=== PATIENT | female | born 1990 | race Caucasian/White ===

== ENCOUNTER 2017-09-30 17:10 | Emergency (ER) | payer BC, MEDICAID ==
[~2017-09-30] VITALS: Ht 165.1 cm; Wt 65.8 kg
[2017-09-30 17:10] VITALS: BP 122/78
[2017-09-30] MEDS ORDERED: IBUPROFEN 600 MG TABLET PO ONE ×2 (18:00)
--- NOTE | 2017-09-30 18:52 | NUR ---
REPORT GIVEN TO DONAVAN ECHOLS FOR LAITH.
== END 2017-09-30 20:43 | disposition home or self-care (01) ==
LOC: ER 17:14
DX: S20.212A Contusion of left front wall of thorax, initial encounter (principal); V49.49XA Driver injured in collision with other motor vehicles in traffic accident, initial encounter; Y93.89 Activity, other specified; Y92.413 State road as the place of occurrence of the external cause; Y99.8 Other external cause status
CPT/HCPCS: 71100; 84703; 99285; A4606; Z7610